=== PATIENT | male | born 1950 | race Caucasian/White ===

== ENCOUNTER 2025-05-28 22:55 | Inpatient (IN) | payer MEDICARE ==
[~2025-05-28] VITALS: Ht 170.2 cm; Wt 117.2 kg
[~2025-05-28 22:55] MED LIST: AMARYL2 MG PO; ATORVASTATIN CA20 MG PO; CARVEDILOL3.125 MG PO; CINNAMON500 MG PO; CLOPIDOGREL75 MG PO; FLAX OIL1000 MG PO; FLOMAX0.4 MG PO; FORMULA E400 UNIT PO; FUROSEMIDE20 MG PO; GABAPENTIN300 MG PO; LISINOPRIL5 MG PO; OSTEO BI-FLEX1 EAC1 PO; PANTOPRAZOLE SO40 MG PO; SAW PALMETTO450 MG PO; STAGESIC 5-5001 EACH PO; VITAMIN C1000 M2 PO; ZINC50 M2 PO; ZOLPIDEM TARTRAT5 MG PO
[2025-05-28 22:58] VITALS: TEMP 97.5
[2025-05-28 23:48] LABS: BASOPHILS % 0.4 % (0.0-1.0); EOSINOPHILS % 1.3 % (0.0-6.0); LYMPHOCYTES % 17.8 % (18.0-39.1); MONOCYTES % 7.4 % (4.4-11.3); NEUTROPHILS % 72.7 % (38.7-80.0); RED CELL DISTRIBUTION WIDTH 20.8 % (11.7-14.4)
[2025-05-29] VITALS (13 sets, daily range): BP systolic 98–129; BP diastolic 75–89; PULSE 67–111; RESP 15–20; TEMP 97.2–97.9; O2SAT 92–98
[2025-05-29 00:02] LABS: EST GLOMERULAR FILTRATION RATE 15.0 ML/MIN (>=60)
[2025-05-29] MEDS: ACETAMINOPHEN 325 MG TAB PO STA (00:32)
[2025-05-29] MEDS: SODIUM CHLORIDE 0.9% 1000ML 1,000 ML IV STA (00:32)
[2025-05-29] MEDS ORDERED: FISH OIL 1,0001 EAC6 PO (00:37)
[2025-05-29] MEDS ORDERED: SODIUM CHLORIDE FLUSH 10 ML SYR INJ PRN (03:00)
[2025-05-29] MEDS: FUROSEMIDE INJ 10 MG/ML 10 ML VIAL IV SCH (04:39)
[2025-05-29] MEDS: FUROSEMIDE INJ 10 MG/ML 4 ML VIAL ONE (04:51)
[2025-05-29 08:06] LABS: LEUKOCYTE ESTERASE ,URINE TRACE (NEGATIVE); PROTEIN,URINE DIPSTICK 2+ (NEGATIVE)
[2025-05-29 08:07] LABS: URINE UROBILINOGEN 0.2 mg/dL (0.2 - 1)
[2025-05-29 08:32] LABS: EPITHELIAL CELLS,URINE FEW /LPF
[2025-05-29] MEDS ORDERED: FUROSEMIDE INJ 10 MG/ML 4 ML VIAL IV SCH (09:00)
[2025-05-29] MEDS: ALBUMIN 5% 0.05 GM/ML BTL IV ONE (15:49)
[2025-05-29] MEDS: BUMETANIDE INJ 0.25MG/ML 4ML VIAL IV SCH (17:40)
[2025-05-29] MEDS ORDERED: DIPHENHYDRAMINE HCL 25 MG CAP PO PRN (17:45)
[2025-05-29] MEDS ORDERED: HYDRALAZINE HCL 20 MG/ML VIAL IV PRN (17:45)
[2025-05-29] MEDS ORDERED: POTASSIUM CHLORIDE 20 MEQ TAB CR PO PRN (17:45)
[2025-05-29] MEDS ORDERED: ONDANSETRON HCL INJ 2MG/ML 2ML 2 MG/ML VIAL IV PRN (17:45)
[2025-05-29] MEDS ORDERED: FUROSEMIDE INJ 100 MG in SODIUM CHLORIDE 0.9% 90 ML IV SCH (17:45)
[2025-05-29] MEDS ORDERED: DEXTROSE 50% SYRINGE 50 ML IV PRN (17:45)
[2025-05-29] MEDS ORDERED: DOCUSATE SODIUM 100 MG CAP PO PRN (17:45)
[2025-05-29] MEDS ORDERED: SIMETHICONE 80 MG CHEW PO PRN (17:45)
[2025-05-29] MEDS ORDERED: Vancomycin IV 1 GM in SODIUM CHLORIDE 0.9% 250ML 250 ML IV SCH (17:45)
[2025-05-29] MEDS: FUROSEMIDE INJ 100 MG in SODIUM CHLORIDE 0.9% 90 ML IV SCH (18:51)
[2025-05-29] MEDS: METOLAZONE 5 MG TAB PO ONE (18:52)
[2025-05-29] MEDS: LINEZOLID 600 MG/D5W 300ML 300 ML IV SCH (18:54)
[2025-05-29] MEDS: ENOXAPARIN 30 MG/0.3 ML SYR SC SCH (20:20)
[2025-05-29] MEDS: SODIUM CHLORIDE 0.9% 250ML 250 ML ONE (20:52)
[2025-05-30 05:37] LABS: BASOPHILS % 0.3 % (0.0-1.0); EOSINOPHILS % 3.6 % (0.0-6.0); LYMPHOCYTES % 20.1 % (18.0-39.1); MONOCYTES % 8.5 % (4.4-11.3); NEUTROPHILS % 67.2 % (38.7-80.0); RED CELL DISTRIBUTION WIDTH 21.0 % (11.7-14.4)
[2025-05-30 05:42] VITALS: BP_SYST 122; BP_SYST 98; BP_DIAS 76; BP_DIAS 83; PULSE 67; PULSE 90; RESP 18; RESP 20; TEMP 97.3; TEMP 97.6; O2SAT 92; O2SAT 94
[2025-05-30 06:25] LABS: CHOL/HDL RATIO 3.1 (3.9-4.7); LDL CHOLESTEROL 55.0 MG/DL (60-130)
[2025-05-30 06:28] LABS: EST GLOMERULAR FILTRATION RATE 15.0 ML/MIN (>=60)
[2025-05-30 08:00] VITALS: BP 113/77; PULSE 94; RESP 18; TEMP 97.5; O2SAT 93
[2025-05-30] MEDS ORDERED: METOLAZONE 5 MG TAB PO SCH (09:00)
[2025-05-30] MEDS: PANTOPRAZOLE SOD 40 MG TABEC PO SCH (09:12)
[2025-05-30] MEDS: CARVEDILOL 3.125 MG TAB PO SCH (09:12)
[2025-05-30 10:51] VITALS: BP 113/77; PULSE 94; RESP 18; TEMP 97.5; O2SAT 93
[2025-05-30 16:00] VITALS: BP 97/63; PULSE 72; RESP 18; TEMP 97.4; O2SAT 93
[2025-05-30] MEDS ORDERED: LINEZOLID 600 MG/D5W 300ML 300 ML IV SCH (18:15)
[2025-05-30 20:00] VITALS: BP 91/64; PULSE 60; RESP 18; TEMP 97.8; O2SAT 96
[2025-05-31] VITALS (7 sets, daily range): BP systolic 100–128; BP diastolic 57–87; PULSE 70–106; RESP 18–20; TEMP 96.6–97.7; O2SAT 94–97
[2025-05-31] MEDS: ACETAMINOPHEN 325 MG TAB PO PRN (00:15)
[2025-05-31] MEDS: MELATONIN 5 MG TABLET PO PRN (00:15)
[2025-05-31 06:37] LABS: BASOPHILS % 0.3 % (0.0-1.0); EOSINOPHILS % 5.2 % (0.0-6.0); LYMPHOCYTES % 20.2 % (18.0-39.1); MONOCYTES % 8.0 % (4.4-11.3); NEUTROPHILS % 65.8 % (38.7-80.0); RED CELL DISTRIBUTION WIDTH 21.1 % (11.7-14.4)
[2025-05-31 07:07] LABS: EST GLOMERULAR FILTRATION RATE 13.0 ML/MIN (>=60)
[2025-05-31] MEDS: TAMSULOSIN HCL 0.4 MG CAP PO SCH (09:09)
[2025-05-31] MEDS: CEFTRIAXONE 2 GM in SODIUM CHLORIDE 0.9% 100 ML IV SCH (09:10)
[2025-05-31] MEDS ORDERED: FUROSEMIDE INJ 10 MG/ML 4 ML VIAL IV ONE (17:00)
[2025-05-31] MEDS: METOLAZONE 5 MG TAB PO ONE (17:22)
[2025-05-31] MEDS: FUROSEMIDE INJ 10 MG/ML 4 ML VIAL IV ONE (17:58)
[2025-05-31] MEDS: SODIUM CHLORIDE 0.9% 250ML 250 ML ONE (19:28)
[2025-05-31] MEDS: FUROSEMIDE INJ 10 MG/ML 4 ML VIAL IV SCH (22:00)
[2025-06-01] VITALS (7 sets, daily range): BP systolic 86–116; BP diastolic 20–78; PULSE 59–104; RESP 17–20; TEMP 97.2–97.8; O2SAT 94–99
[2025-06-01] MEDS: METOLAZONE 5 MG TAB PO SCH (10:10)
[2025-06-01 11:19] LABS: EST GLOMERULAR FILTRATION RATE 12.0 ML/MIN (>=60)
[2025-06-01] MEDS: BUMETANIDE INJ 0.25MG/ML 4ML VIAL IV SCH (14:03)
[2025-06-01 14:30] LABS: CREATININE,URINE RANDOM 176.58 mg/dL (63-166); TOTAL PROTEIN, URINE 84.5 mg/dL (1-14)
[2025-06-01] MEDS: ONDANSETRON HCL INJ 2MG/ML 2ML 2 MG/ML VIAL IV PRN (21:01)
[2025-06-01] MEDS: Morphine 4mg INJECTION 4 MG/ML INJ IV PRN (21:03)
[2025-06-02] VITALS (21 sets, daily range): BP systolic 92–154; BP diastolic 47–88; PULSE 85–111; RESP 0–22; TEMP 97–98.3; O2SAT 92–100
[2025-06-02 06:31] LABS: BASOPHILS % 0.2 % (0.0-1.0); EOSINOPHILS % 0.3 % (0.0-6.0); LYMPHOCYTES % 7.4 % (18.0-39.1); MONOCYTES % 16.4 % (4.4-11.3); NEUTROPHILS % 75.0 % (38.7-80.0); RED CELL DISTRIBUTION WIDTH 21.1 % (11.7-14.4)
[2025-06-02 07:27] LABS: EST GLOMERULAR FILTRATION RATE 11.0 ML/MIN (>=60)
[2025-06-02] MEDS: METOPROLOL SUCCINATE 25 MG TAB XL PO SCH (09:00)
[2025-06-02] MEDS: BENZONATATE 100 MG CAP PO PRN (09:08)
[2025-06-02] MEDS: ALBUMIN 5% 0.05 GM/ML BTL IV STA (09:48)
[2025-06-02] MEDS ORDERED: LIDOCAINE HCL 1% 30ML-PF VIAL ONE (10:12)
[2025-06-02] MEDS ORDERED: SODIUM CHLORIDE 0.9% 250ML 250 ML ONE ×2 (10:12→12:51)
[2025-06-02 12:12] LABS: INR 1.46
[2025-06-02] MEDS ORDERED: FENTANYL CITRATE/PF 100MCG/2 ML INJ ONE (12:50)
[2025-06-02] MEDS ORDERED: MIDAZOLAM HCL 2 MG/2 ML VIAL ONE (12:50)
[2025-06-02] MEDS ORDERED: HEPARIN SOD (PORCINE) 1000 UNIT/ML SDV ONE (13:15)
[2025-06-02] MEDS: ALBUTEROL/IPRATROPIUM 3 ML NEB NEB PRN (14:56)
[2025-06-02 15:09] LABS: ABG BASE EXCESS -8.0 mmol/L (-2 - 3); ABG HCO3 22 mmol/L (22-26); ABG OXYGEN SATURATION 99.0 % (95-98); ABG PCO2 77 mmHg (35-45); ABG PH 7.07 (7.35-7.45); ABG PO2 179 mmHg (80-105); ABG TCO2 25
[2025-06-02 16:53] LABS: ABG BASE EXCESS -7.0 mmol/L (-2 - 3); ABG HCO3 22 mmol/L (22-26); ABG OXYGEN SATURATION 100.0 % (95-98); ABG PCO2 60 mmHg (35-45); ABG PH 7.16 (7.35-7.45); ABG PO2 285 mmHg (80-105); ABG TCO2 23
[2025-06-02 17:07] LABS: EST GLOMERULAR FILTRATION RATE 9.0 ML/MIN (>=60)
[2025-06-02] MEDS: MIDODRINE 2.5 MG TAB PO SCH (18:00)
[2025-06-02] MEDS: NOREPINEPHRINE 8 MG/D5W 250 ML 250 ML ONE (18:13)
[2025-06-02] MEDS: SODIUM BICARBONATE 8.4% INJ 50 ML SYR IV STA (18:14)
[2025-06-02] MEDS: ALBUMIN 25% 12.5GM 50ML 50 ML IV ONE (18:15)
[2025-06-02 20:44] LABS: BASOPHILS % 0.1 % (0.0-1.0); EOSINOPHILS % 0.0 % (0.0-6.0); LYMPHOCYTES % 2.9 % (18.0-39.1); MONOCYTES % 6.0 % (4.4-11.3); NEUTROPHILS % 90.3 % (38.7-80.0); RED CELL DISTRIBUTION WIDTH 20.6 % (11.7-14.4)
[2025-06-02 21:39] LABS: ABG PH 7.16 (7.35-7.45)
[2025-06-02 21:41] LABS: ABG BASE EXCESS -3.0 mmol/L (-2 - 3); ABG HCO3 26 mmol/L (22-26); ABG OXYGEN SATURATION 90.0 % (95-98); ABG PCO2 73 mmHg (35-45); ABG PO2 76 mmHg (80-105); ABG TCO2 28
[2025-06-03] VITALS (56 sets, daily range): BP systolic 83–126; BP diastolic 58–93; PULSE 61–110; RESP 0–22; TEMP 98–99; O2SAT 95–100
[2025-06-03] MEDS: NOREPINEPHRINE 8 MG/D5W 250 ML 250 ML ONE (04:55)
[2025-06-03 05:53] LABS: EST GLOMERULAR FILTRATION RATE 10.0 ML/MIN (>=60)
[2025-06-03 06:55] LABS: ABG BASE EXCESS -5.0 mmol/L (-2 - 3); ABG HCO3 21 mmol/L (22-26); ABG OXYGEN SATURATION 95.0 % (95-98); ABG PCO2 40 mmHg (35-45); ABG PH 7.33 (7.35-7.45); ABG PO2 82 mmHg (80-105); ABG TCO2 22
[2025-06-03] MEDS ORDERED: SODIUM CHLORIDE 0.9% 1000ML 2,000 ML IV PRN (10:30)
[2025-06-03] MEDS ORDERED: HEPARIN SOD (PORCINE) 1000 UNIT/ML SDV IV PRN (10:30)
[2025-06-03] MEDS: KETOROLAC TROMETHAMINE 30 MG/ML VIAL IV STA ×2 (10:40→20:49)
[2025-06-03] MEDS: ALBUMIN 25% 12.5GM 50ML 50 ML IV ONE (19:28)
[2025-06-03] MEDS: HEPARIN SOD (PORCINE) 1000 UNIT/ML SDV ONE (19:29)
[2025-06-03] MEDS: NOREPINEPHRINE 8 MG/D5W 250 ML 250 ML IV SCH (20:49)
[2025-06-03] MEDS: MUPIROCIN 2% OINT 22 GM TUBE TOP SCH (20:51)
[2025-06-04] VITALS (49 sets, daily range): BP systolic 84–129; BP diastolic 62–85; PULSE 102–110; RESP 4–22; TEMP 97.8–98.9; O2SAT 88–100
[2025-06-04 05:25] LABS: HEPATITIS B SURFACE AB QUANT <3.5
[2025-06-04 05:26] LABS: HEPATITIS B CORE AB TOTAL Negative; HEPATITIS B CORE IGM (P) Negative; HEPATITIS B SURFACE AG (P) Negative
[2025-06-04 06:27] LABS: EST GLOMERULAR FILTRATION RATE 11 ML/MIN (>=60)
[2025-06-04] MEDS ORDERED: ALBUMIN 25% 12.5GM 0.25 GM/ML BTL IV PRN (09:15)
[2025-06-04] MEDS ORDERED: SODIUM CHLORIDE 0.9% 100 ML ONE (09:23)
[2025-06-04] MEDS: ATORVASTATIN 20 MG TAB PO SCH (09:25)
[2025-06-04] MEDS: ASPIRIN 81 MG CHEW TAB PO SCH (09:25)
[2025-06-04 09:30] LABS: ABG BASE EXCESS -5.0 mmol/L (-2 - 3); ABG HCO3 21 mmol/L (22-26); ABG OXYGEN SATURATION 95.0 % (95-98); ABG PCO2 40 mmHg (35-45); ABG PH 7.33 (7.35-7.45); ABG PO2 82 mmHg (80-105); ABG TCO2 22
[2025-06-04 09:30] LABS: ABG BASE EXCESS -3.0 mmol/L (-2 - 3); ABG HCO3 26 mmol/L (22-26); ABG OXYGEN SATURATION 90.0 % (95-98); ABG PCO2 73 mmHg (35-45); ABG PH 7.16 (7.35-7.45); ABG PO2 76 mmHg (80-105); ABG TCO2 28
[2025-06-04 09:30] LABS: ABG BASE EXCESS -7.0 mmol/L (-2 - 3); ABG HCO3 22 mmol/L (22-26); ABG OXYGEN SATURATION 100.0 % (95-98); ABG PCO2 60 mmHg (35-45); ABG PH 7.16 (7.35-7.45); ABG PO2 285 mmHg (80-105); ABG TCO2 23
[2025-06-04 09:30] LABS: ABG BASE EXCESS -8.0 mmol/L (-2 - 3); ABG HCO3 22 mmol/L (22-26); ABG OXYGEN SATURATION 99.0 % (95-98); ABG PCO2 77 mmHg (35-45); ABG PH 7.07 (7.35-7.45); ABG PO2 179 mmHg (80-105); ABG TCO2 25
[2025-06-05] VITALS (63 sets, daily range): BP systolic 79–140; BP diastolic 52–103; PULSE 32–115; RESP 12–27; TEMP 98.7–99.6; O2SAT 52–100
[2025-06-05 05:47] LABS: EST GLOMERULAR FILTRATION RATE 12.0 ML/MIN (>=60)
[2025-06-05 06:21] LABS: BASOPHILS % 0.1 % (0.0-1.0); EOSINOPHILS % 1.5 % (0.0-6.0); LYMPHOCYTES % 13.4 % (18.0-39.1); MONOCYTES % 8.1 % (4.4-11.3); NEUTROPHILS % 76.5 % (38.7-80.0); RED CELL DISTRIBUTION WIDTH 20.8 % (11.7-14.4)
[2025-06-05] MEDS: SODIUM CHLORIDE 0.9% 100 ML ONE (19:03)
[2025-06-05] MEDS: SODIUM CHLORIDE 0.9% 1000ML 2,000 ML ONE (19:03)
[2025-06-05] MEDS: SODIUM CHLORIDE 0.9% 1000ML 1,000 ML ONE (19:04)
[2025-06-05] MEDS: MANNITOL 25% 12.5GM/50ML 100 ML ONE (19:04)
[2025-06-05] MEDS: NOREPINEPHRINE 8 MG/D5W 250 ML 250 ML ONE (20:57)
[2025-06-06] VITALS (102 sets, daily range): BP systolic 70–144; BP diastolic 41–112; PULSE 98–113; RESP 7–28; TEMP 96.9–99.1; O2SAT 81–100
[2025-06-07] VITALS (84 sets, daily range): BP systolic 72–112; BP diastolic 44–81; PULSE 54–114; RESP 10–24; TEMP 96.8–98.2; O2SAT 90–100
[2025-06-07 11:03] LABS: BASOPHILS % 0.3 % (0.0-1.0); EOSINOPHILS % 1.6 % (0.0-6.0); LYMPHOCYTES % 14.5 % (18.0-39.1); MONOCYTES % 9.9 % (4.4-11.3); NEUTROPHILS % 73.2 % (38.7-80.0); RED CELL DISTRIBUTION WIDTH 20.6 % (11.7-14.4)
[2025-06-07 11:34] LABS: EST GLOMERULAR FILTRATION RATE 12.0 ML/MIN (>=60)
[2025-06-08] VITALS (81 sets, daily range): BP systolic 65–113; BP diastolic 45–79; PULSE 58–113; RESP 11–26; TEMP 96.5–97.9; O2SAT 88–100
[2025-06-08 08:27] LABS: BASOPHILS % 0.2 % (0.0-1.0); EOSINOPHILS % 0.9 % (0.0-6.0); LYMPHOCYTES % 7.8 % (18.0-39.1); MONOCYTES % 9.1 % (4.4-11.3); NEUTROPHILS % 81.5 % (38.7-80.0); RED CELL DISTRIBUTION WIDTH 20.7 % (11.7-14.4)
[2025-06-08 08:51] LABS: EST GLOMERULAR FILTRATION RATE 10.0 ML/MIN (>=60)
[2025-06-08 17:52] LABS: ABG BASE EXCESS -6.0 mmol/L (-2 - 3); ABG HCO3 23 mmol/L (22-26); ABG OXYGEN SATURATION 72.0 % (95-98); ABG PCO2 69 mmHg (35-45); ABG PH 7.14 (7.35-7.45); ABG PO2 51 mmHg (80-105); ABG TCO2 25
[2025-06-09] VITALS (106 sets, daily range): BP systolic 68–136; BP diastolic 52–100; PULSE 98–120; RESP 12–27; TEMP 96.7–98.2; O2SAT 92–100
[2025-06-09 08:43] LABS: ABG HCO3 24 mmol/L (22-26); ABG PCO2 61 mmHg (35-45); ABG PH 7.19 (7.35-7.45); ABG PO2 101 mmHg (80-105)
[2025-06-09 08:44] LABS: ABG BASE EXCESS -5.0 mmol/L (-2 - 3); ABG OXYGEN SATURATION 96.0 % (95-98); ABG TCO2 25
[2025-06-09 10:42] LABS: EST GLOMERULAR FILTRATION RATE 9.0 ML/MIN (>=60)
[2025-06-09 18:46] LABS: HIV 1&2 AB SCREEN NON-REACTIVE (NONREACTIVE); HIV- 1 P24 AG SCREEN NON-REACTIVE (NONREACTIVE)
[2025-06-09] MEDS: CENTRAL TPN FORMULA 1 BAG IV SCH (20:18)
[2025-06-10] VITALS (50 sets, daily range): BP systolic 70–125; BP diastolic 49–95; PULSE 25–121; RESP 11–27; TEMP 97.7–98.7; O2SAT 90–100
[2025-06-10 08:09] LABS: ABG BASE EXCESS -5.0 mmol/L (-2 - 3); ABG HCO3 23 mmol/L (22-26); ABG OXYGEN SATURATION 96.0 % (95-98); ABG PCO2 61 mmHg (35-45); ABG PH 7.19 (7.35-7.45); ABG PO2 101 mmHg (80-105); ABG TCO2 25
[2025-06-10 08:09] LABS: ABG BASE EXCESS -6.0 mmol/L (-2 - 3); ABG HCO3 23 mmol/L (22-26); ABG OXYGEN SATURATION 72.0 % (95-98); ABG PCO2 69 mmHg (35-45); ABG PH 7.14 (7.35-7.45); ABG PO2 51 mmHg (80-105); ABG TCO2 25
[2025-06-10 09:00] LABS: EST GLOMERULAR FILTRATION RATE 11.0 ML/MIN (>=60)
[2025-06-10 09:58] LABS: ABG HCO3 25 mmol/L (22-26); ABG PCO2 54 mmHg (35-45); ABG PH 7.27 (7.35-7.45); ABG PO2 107 mmHg (80-105); ABG TCO2 26
[2025-06-10 09:59] LABS: ABG BASE EXCESS -2.0 mmol/L (-2 - 3); ABG OXYGEN SATURATION 97.0 % (95-98)
[2025-06-10] MEDS ORDERED: DEXTROSE 50% SYRINGE 50 ML IV PRN (15:00)
[2025-06-10 15:50] LABS: BASOPHILS % 0.2 % (0.0-1.0); EOSINOPHILS % 1.5 % (0.0-6.0); LYMPHOCYTES % 10.0 % (18.0-39.1); MONOCYTES % 16.1 % (4.4-11.3); NEUTROPHILS % 71.5 % (38.7-80.0); RED CELL DISTRIBUTION WIDTH 19.9 % (11.7-14.4)
[2025-06-10] MEDS: INSULIN REGULAR, HUMAN 100 UNIT/1 ML SQ SCH (17:34)
[2025-06-10 19:17] LABS: ABG PH 7.21 (7.35-7.45)
[2025-06-10 19:18] LABS: ABG HCO3 26 mmol/L (22-26); ABG PCO2 66 mmHg (35-45); ABG PO2 117 mmHg (80-105)
[2025-06-10 19:19] LABS: ABG BASE EXCESS -2.0 mmol/L (-2 - 3); ABG OXYGEN SATURATION 97.0 % (95-98); ABG TCO2 28
[2025-06-10] MEDS: CENTRAL TPN FORMULA 1 BAG IV SCH (20:31)
[2025-06-11] VITALS (38 sets, daily range): BP systolic 87–118; BP diastolic 50–86; PULSE 78–122; RESP 11–34; TEMP 96.8–98; O2SAT 95–100
[2025-06-11 06:12] LABS: BASOPHILS % 0.2 % (0.0-1.0); EOSINOPHILS % 3.4 % (0.0-6.0); LYMPHOCYTES % 11.5 % (18.0-39.1); MONOCYTES % 15.0 % (4.4-11.3); NEUTROPHILS % 68.7 % (38.7-80.0); RED CELL DISTRIBUTION WIDTH 19.2 % (11.7-14.4)
[2025-06-11 06:36] LABS: EST GLOMERULAR FILTRATION RATE 12 ML/MIN (>=60)
[2025-06-11 06:47] LABS: HAPTOGLOBIN 50 mg/dL (34-355)
[2025-06-11] MEDS: CENTRAL TPN FORMULA 1 BAG IV SCH ×2 (07:37→20:02)
[2025-06-11 09:15] LABS: ABG PCO2 44 mmHg (35-45); ABG PH 7.36 (7.35-7.45); ABG PO2 174 mmHg (80-105)
[2025-06-11 09:16] LABS: ABG BASE EXCESS 0.0 mmol/L (-2 - 3); ABG HCO3 25 mmol/L (22-26); ABG OXYGEN SATURATION 100.0 % (95-98); ABG TCO2 26
[2025-06-11 10:56] LABS: HEPATITIS B CORE IGM (P) Negative
[2025-06-11 10:58] LABS: HEPATITIS A ANTIBODY IGM (P) Negative; HEPATITIS B SURFACE AG (P) Negative
[2025-06-12] VITALS (56 sets, daily range): BP systolic 58–140; BP diastolic 31–125; PULSE 28–121; RESP 14–24; TEMP 97.6–98.2; O2SAT 93–100
[2025-06-12] MEDS: LIDOCAINE 4% PATCH TP PRN (05:03)
[2025-06-12 06:01] LABS: EST GLOMERULAR FILTRATION RATE 17 ML/MIN (>=60)
[2025-06-12 06:18] LABS: RED CELL DISTRIBUTION WIDTH 19.0 % (11.7-14.4)
[2025-06-12 06:19] LABS: BASOPHILS % 0.5 % (0.0-1.0); EOSINOPHILS % 2.8 % (0.0-6.0); LYMPHOCYTES % 11.6 % (18.0-39.1); MONOCYTES % 15.0 % (4.4-11.3); NEUTROPHILS % 69.1 % (38.7-80.0)
[2025-06-12] MEDS: BUMETANIDE 10 MG in SODIUM CHLORIDE 0.9% 60 ML IV SCH (18:21)
[2025-06-12] MEDS: LIDOCAINE HCL 5% OINMENT 35.44 GM TUBE TP SCH (18:28)
[2025-06-12] MEDS ORDERED: CENTRAL TPN FORMULA 1 BAG IV SCH (20:00)
[2025-06-12] MEDS: CENTRAL TPN FORMULA 1 BAG IV SCH (20:05)
[2025-06-12] MEDS: ALBUMIN 25% 12.5GM 0.25 GM/ML BTL IV PRN (23:54)
[2025-06-13] VITALS (82 sets, daily range): BP systolic 78–126; BP diastolic 55–106; PULSE 107–121; RESP 8–25; TEMP 96.7–98; O2SAT 96–100
[2025-06-13 06:38] LABS: BASOPHILS % 0.4 % (0.0-1.0); EOSINOPHILS % 1.4 % (0.0-6.0); LYMPHOCYTES % 9.1 % (18.0-39.1); MONOCYTES % 16.0 % (4.4-11.3); NEUTROPHILS % 70.8 % (38.7-80.0); RED CELL DISTRIBUTION WIDTH 19.0 % (11.7-14.4)
[2025-06-13 07:31] LABS: EST GLOMERULAR FILTRATION RATE 14 ML/MIN (>=60); PHOSPHORUS 4.2 MG/DL (2.3-4.7)
[2025-06-13] MEDS: SILVER ANTIMICROBIAL WOUND GEL 45ML TP SCH (08:06)
[2025-06-13 10:23] LABS: ABG HCO3 29 mmol/L (22-26); ABG PCO2 88 mmHg (35-45); ABG PH 7.12 (7.35-7.45); ABG PO2 136 mmHg (80-105)
[2025-06-13 10:24] LABS: ABG BASE EXCESS -1.0 mmol/L (-2 - 3); ABG OXYGEN SATURATION 98.0 % (95-98); ABG TCO2 31
[2025-06-13] MEDS ORDERED: HEPARIN SOD (PORCINE) 1000 UNIT/ML SDV IV PRN (15:00)
[2025-06-13] MEDS ORDERED: ALBUMIN 25% 12.5GM 0.25 GM/ML BTL IV PRN (15:00)
[2025-06-13 16:17] LABS: EST GLOMERULAR FILTRATION RATE 22 ML/MIN (>=60)
[2025-06-13] MEDS: CENTRAL TPN FORMULA 1 BAG IV SCH (21:02)
[2025-06-14] VITALS (67 sets, daily range): BP systolic 61–150; BP diastolic 22–131; PULSE 79–131; RESP 12–27; TEMP 98.2–98.5; O2SAT 79–100
[2025-06-14 07:20] LABS: BASOPHILS % 0.3 % (0.0-1.0); EOSINOPHILS % 2.5 % (0.0-6.0); LYMPHOCYTES % 11.4 % (18.0-39.1); MONOCYTES % 13.2 % (4.4-11.3); NEUTROPHILS % 68.6 % (38.7-80.0); RED CELL DISTRIBUTION WIDTH 18.7 % (11.7-14.4)
[2025-06-14 07:42] LABS: EST GLOMERULAR FILTRATION RATE 17 ML/MIN (>=60)
[2025-06-14] MEDS: SODIUM CHLORIDE 0.9% 100 ML ONE (16:20)
[2025-06-14 16:26] LABS: INR 1.48
[2025-06-14] MEDS ORDERED: SODIUM CHLORIDE 0.9% 250ML 250 ML IV ONE ×2 (16:45→18:45)
[2025-06-14] MEDS ORDERED: ALBUMIN 5% 0.05 GM/ML BTL IV ONE (18:45)
[2025-06-14] MEDS ORDERED: HYDROMORPHONE 1MG/1ML INJ ONE (19:42)
[2025-06-14] MEDS: HYDROMORPHONE 1MG/1ML INJ IV ONE (19:45)
[2025-06-14] MEDS ORDERED: CENTRAL TPN FORMULA 1 BAG IV SCH (20:00)
[2025-06-17 10:50] LABS: ABG BASE EXCESS 0.0 mmol/L (-2 - 3); ABG HCO3 25 mmol/L (22-26); ABG OXYGEN SATURATION 100.0 % (95-98); ABG PCO2 44 mmHg (35-45); ABG PH 7.36 (7.35-7.45); ABG PO2 174 mmHg (80-105); ABG TCO2 26
[2025-06-17 10:50] LABS: ABG BASE EXCESS -2.0 mmol/L (-2 - 3); ABG HCO3 26 mmol/L (22-26); ABG OXYGEN SATURATION 97.0 % (95-98); ABG PCO2 66 mmHg (35-45); ABG PH 7.21 (7.35-7.45); ABG PO2 117 mmHg (80-105); ABG TCO2 28
[2025-06-17 10:50] LABS: ABG BASE EXCESS -2.0 mmol/L (-2 - 3); ABG HCO3 25 mmol/L (22-26); ABG OXYGEN SATURATION 97.0 % (95-98); ABG PCO2 54 mmHg (35-45); ABG PH 7.27 (7.35-7.45); ABG PO2 107 mmHg (80-105); ABG TCO2 26
[2025-06-17 10:50] LABS: ABG BASE EXCESS -1.0 mmol/L (-2 - 3); ABG HCO3 29 mmol/L (22-26); ABG OXYGEN SATURATION 98.0 % (95-98); ABG PCO2 88 mmHg (35-45); ABG PH 7.12 (7.35-7.45); ABG PO2 136 mmHg (80-105); ABG TCO2 31
== END 2025-06-14 22:54 | disposition hospice, inpatient (51) | DRG 871 ==
LOC: ER 23:06 → ERHOLD 05-29 02:50 → MED/SURG3 05-29 03:41 → ICU 06-02 14:42
PROVIDERS: ADMIT Internal Medicine; ATTEND Internal Medicine
PROC: 3E03329 Introduction of Other Anti-infective into Peripheral Vein, Percutaneous Approach (ICD-10-PCS; 2025-05-29)
PROC: 0JH63XZ Insertion of Tunneled Vascular Access Device into Chest Subcutaneous Tissue and Fascia, Percutaneous Approach (ICD-10-PCS; principal; 2025-06-02)
PROC: 06H033Z Insertion of Infusion Device into Inferior Vena Cava, Percutaneous Approach (ICD-10-PCS; 2025-06-02)
PROC: B549ZZA Ultrasonography of Inferior Vena Cava, Guidance (ICD-10-PCS; 2025-06-02)
PROC: 5A09357 Assistance with Respiratory Ventilation, Less than 24 Consecutive Hours, Continuous Positive Airway Pressure (ICD-10-PCS; 2025-06-02)
PROC: 3E033XZ Introduction of Vasopressor into Peripheral Vein, Percutaneous Approach (ICD-10-PCS; 2025-06-02)
PROC: 5A1D70Z Performance of Urinary Filtration, Intermittent, Less than 6 Hours Per Day (ICD-10-PCS; 2025-06-03)
PROC: 5A1D70Z Performance of Urinary Filtration, Intermittent, Less than 6 Hours Per Day (ICD-10-PCS; 2025-06-04)
PROC: 5A1D70Z Performance of Urinary Filtration, Intermittent, Less than 6 Hours Per Day (ICD-10-PCS; 2025-06-05)
PROC: 5A09457 Assistance with Respiratory Ventilation, 24-96 Consecutive Hours, Continuous Positive Airway Pressure (ICD-10-PCS; 2025-06-08)
PROC: 3E0336Z Introduction of Nutritional Substance into Peripheral Vein, Percutaneous Approach (ICD-10-PCS; 2025-06-09)
DX: A41.9 Sepsis, unspecified organism (principal); G93.41 Metabolic encephalopathy; I50.43 Acute on chronic combined systolic (congestive) and diastolic (congestive) heart failure; N18.6 End stage renal disease; J96.22 Acute and chronic respiratory failure with hypercapnia; J69.0 Pneumonitis due to inhalation of food and vomit; J96.01 Acute respiratory failure with hypoxia; N17.0 Acute kidney failure with tubular necrosis; N18.4 Chronic kidney disease, stage 4 (severe); L03.116 Cellulitis of left lower limb; L03.115 Cellulitis of right lower limb; Z68.41 Body mass index [BMI] 40.0-44.9, adult; I13.2 Hypertensive heart and chronic kidney disease with heart failure and with stage 5 chronic kidney disease, or end stage renal disease; L97.929 Non-pressure chronic ulcer of unspecified part of left lower leg with unspecified severity; L97.919 Non-pressure chronic ulcer of unspecified part of right lower leg with unspecified severity; I47.20 Ventricular tachycardia, unspecified; E44.0 Moderate protein-calorie malnutrition; N17.9 Acute kidney failure, unspecified; K92.1 Melena; R65.20 Severe sepsis without septic shock; I25.10 Atherosclerotic heart disease of native coronary artery without angina pectoris; Z95.1 Presence of aortocoronary bypass graft; I44.7 Left bundle-branch block, unspecified; E11.22 Type 2 diabetes mellitus with diabetic chronic kidney disease; Z79.84 Long term (current) use of oral hypoglycemic drugs; E03.9 Hypothyroidism, unspecified; I87.2 Venous insufficiency (chronic) (peripheral); E66.01 Morbid (severe) obesity due to excess calories; Z71.3 Dietary counseling and surveillance; T24.202A Burn of second degree of unspecified site of left lower limb, except ankle and foot, initial encounter; T24.002A Burn of unspecified degree of unspecified site of left lower limb, except ankle and foot, initial encounter; X10.2XXA Contact with fats and cooking oils, initial encounter; Y92.000 Kitchen of unspecified non-institutional (private) residence as the place of occurrence of the external cause; Z91.148 Patient's other noncompliance with medication regimen for other reason; L89.150 Pressure ulcer of sacral region, unstageable; R53.81 Other malaise; I95.9 Hypotension, unspecified; R62.7 Adult failure to thrive; D69.59 Other secondary thrombocytopenia; T36.95XA Adverse effect of unspecified systemic antibiotic, initial encounter; Y92.230 Patient room in hospital as the place of occurrence of the external cause; I07.1 Rheumatic tricuspid insufficiency; Z51.5 Encounter for palliative care; Z78.1 Physical restraint status; Z71.81 Spiritual or religious counseling; Z79.899 Other long term (current) drug therapy; Z79.02 Long term (current) use of antithrombotics/antiplatelets
CPT/HCPCS: 36415; 36558; 36600; 71045; 74176; 74470; 76770; 76937; 77001; 80048; 80053; 80061; 81001; 82140; 82550; 82570; 82575; 82607; 82746; 82805; 82948; 83010; 83036; 83605; 83615; 83735; 83880; 84100; 84156; 84443; 84484; 85014; 85018; 85025; 85610; 85730; 86022; 86704; 86705; 86706; 86850; 86900; 86920; 87040; 87086; 87340; 87390; 93005; 93306; 93880; 93970; 94640; 94660; 94799; 96365; 96372; 99252; 99284; C1769; C1892; G0433; G0435; J0690; J0696; J1171; J1644; J1650; J1885; J1938; J1940; J2003; J2020; J2150; J2185; J2250; J2270; J2405; J2470; J2543; J7030; J7050

== ENCOUNTER 2025-06-14 22:22 | Inpatient (IN) | payer OTHER ==
[~2025-06-14 22:22] MED LIST changes: +FISH OIL 1,0001 EAC6 PO
[2025-06-15] MEDS: LORAZEPAM INJ 2 MG/ML VIAL IV PRN (00:03)
[2025-06-15] MEDS ORDERED: ONDANSETRON HCL INJ 2MG/ML 2ML 2 MG/ML VIAL IV PRN (00:15)
[2025-06-15] MEDS ORDERED: BISACODYL 10 MG SUPP PR PRN (00:15)
[2025-06-15] MEDS ORDERED: ATROPINE SULFATE 1% OPTH DROPS 15 ML BTL SL PRN (00:15)
[2025-06-15] MEDS ORDERED: Morphine 4mg INJECTION 4 MG/ML INJ IV PRN (00:15)
[2025-06-15] MEDS ORDERED: LORAZEPAM INJ 2 MG/ML VIAL IV SCH (00:15)
[2025-06-15] MEDS ORDERED: LORAZEPAM INJ 2 MG/ML VIAL IV PRN (00:15)
== END 2025-06-15 04:29 | disposition expired | DRG 951 ==
LOC: ICU 22:22 → UNDOADMIN 22:22 → ICU 23:02
PROVIDERS: ADMIT Internal Medicine; ATTEND Internal Medicine
DX: Z51.5 Encounter for palliative care (principal); A41.9 Sepsis, unspecified organism; G93.41 Metabolic encephalopathy; I50.43 Acute on chronic combined systolic (congestive) and diastolic (congestive) heart failure; N18.6 End stage renal disease; J96.22 Acute and chronic respiratory failure with hypercapnia; J69.0 Pneumonitis due to inhalation of food and vomit; R65.20 Severe sepsis without septic shock; I13.2 Hypertensive heart and chronic kidney disease with heart failure and with stage 5 chronic kidney disease, or end stage renal disease; E11.22 Type 2 diabetes mellitus with diabetic chronic kidney disease; L89.150 Pressure ulcer of sacral region, unstageable; Z66 Do not resuscitate
CPT/HCPCS: 94660; J2060